=== PATIENT | female | born 1960 | race Two or more races ===

== ENCOUNTER 2019-08-25 20:15 | Emergency (ER) | payer OTHER ==
[~2019-08-25] VITALS: Ht 154.9 cm; Wt 58.6 kg
[~2019-08-25 20:15] MED LIST: ATOR20TA PO; HYDR-3240 PO; SUMA50TA3 PO; TOPI50TA35 PO
--- NOTE | 2019-08-25 21:06 | NUR ---
THIS IS A 58 YO F W/ C/O GREEN AND FLU LIKE SYMPTOMS SINCE THURSDAY. PT REPORTS SHE TYPICALLY TAKES IMITREX FOR GREEN BUT IS OUT OF RX. PT IS PHOTOPHOBIC, N/V. DENIES ABD PAIN, PAIN W/ URINATION. PT RESTING ON Skype W/ CALL LIGHT IN REACH, VSS, NADN, SIDE RAILS UPX2. LIGHTS TURNED OFF FOR COMFORT.
[2019-08-25] MEDS ORDERED: ACETAMINOPHEN 500 MG TABLET ONE (21:15)
[2019-08-25] MEDS ORDERED: DIPHENHYDRAMINE 50 MG/ML, 1ML ONE (21:15)
[2019-08-25] MEDS ORDERED: KETOROLAC 30 MG/1 ML ONE (21:15)
[2019-08-25] MEDS ORDERED: PROCHLORPERAZINE 5 MG/ML, 2ML ONE (21:15)
[2019-08-25] MEDS ORDERED: KETOROLAC 30 MG/1 ML IVPush ONE (21:30)
[2019-08-25] MEDS ORDERED: DIPHENHYDRAMINE 50 MG/ML, 1ML IVPush ONE (21:30)
[2019-08-25] MEDS ORDERED: PROCHLORPERAZINE 5 MG/ML, 2ML IVPush ONE (21:30)
[2019-08-25] MEDS ORDERED: ACETAMINOPHEN 500 MG TABLET PO ONE (21:30)
[2019-08-25] MEDS ORDERED: SODIUM CHLORIDE FLUSH 10ML SYR IVF ONE (21:30)
[2019-08-25] MEDS ORDERED: SODIUM CHLORIDE 0.9% 1,000ML IVBOLUS ONE (21:30)
--- NOTE | 2019-08-25 21:37 | NUR ---
PIV STARTED, LABS DRAWN. PT MEDICATED PER EMAR. CALL TO CT TO COME GET PT.
[2019-08-25 21:39] LABS: BASOPHILS # (AUTO) 0.02 x10^3/uL (0-0.1); BASOPHILS % (AUTO) 0 % (0-1); EOSINOPHILS # (AUTO) 0.14 x10^3/uL (0-0.4); EOSINOPHILS % (AUTO) 1 % (1-7); LYMPHOCYTES % (AUTO) 15 % (22-44); MD NO; MEAN CORPUSCULAR HEMOGLOBIN 30.1 pg (27.0-34.8); MEAN CORPUSCULAR HGB CONC 32.9 g/dL (32.4-35.8); MEAN CORPUSCULAR VOLUME 91.4 fL (80-100); MEAN PLATELET VOLUME 8.1 fL (7.4-10.4); MONOCYTES % (AUTO) 3 % (2-9); NEUTROPHILS # (AUTO) 8.22 x10^3/uL (1.8-6.8); NEUTROPHILS % (AUTO) 81 % (42-75); PLATELET COUNT 370 x10^3/uL (130-400); RED BLOOD COUNT 5.32 x10^6/uL (3.82-5.3); RED CELL DISTRIBUTION WIDTH 12.7 % (9.6-15.2)
--- NOTE | 2019-08-25 21:41 | NUR ---
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
--- NOTE | 2019-08-25 21:50 | NUR ---
RAD IN ROOM.
[2019-08-25 21:51] LABS: ALANINE AMINOTRANSFERASE 20 U/L (12-78); ALBUMIN 3.9 g/dL (3.4-5.0); ANION GAP 8 mmol/L (5-15); CHLORIDE 103 mmol/L (98-107); CREATININE 0.95 mg/dL (0.55-1.02)
[2019-08-25 21:53] LABS: ALKALINE PHOSPHATASE 101 U/L (45-117); BILIRUBIN,TOTAL 0.3 mg/dL (0.2-1.0); TOTAL PROTEIN 8.7 g/dL (6.4-8.2)
--- NOTE | 2019-08-25 22:06 | NUR ---
CT REPORTS SINCE PT IS A COVID RULE OUT THEY NEED TO WAIT 45 MINUTES FOR ROOM TO BE CLEANED THEN THEY WILL COME GET HER.
--- NOTE | 2019-08-25 22:29 | NUR ---
PT TO CT WITH TECH AT THIS TIME.
[2019-08-25 22:39] VITALS: BP 136/64
== END 2019-08-25 23:28 | disposition home or self-care (01) ==
LOC: ED 22:25
DX: G43.009 Migraine without aura, not intractable, without status migrainosus (principal); Z03.818 Encounter for observation for suspected exposure to other biological agents ruled out; R11.2 Nausea with vomiting, unspecified; I10 Essential (primary) hypertension; R05 Cough; E78.00 Pure hypercholesterolemia, unspecified
CPT/HCPCS: 36415; 70450; 71045; 80053; 85025; 96361; 96374; 96375; 99285; J0780; J1200; J7030; U0001